=== PATIENT | female | born 1970 | race American Indian/Alaskan Native ===

== ENCOUNTER 2019-06-03 09:15 | Emergency (ER) | payer OTHER ==
[2019-06-03] MEDS ORDERED: NORMODYNE IV ONE ×2 (11:14→13:33)
[2019-06-03] MEDS ORDERED: APRESOLINE IV ONE (11:21)
[2019-06-03 11:42] LABS: BUN/Creatinine Ratio 10; Blood Urea Nitrogen 6 mg/dL (7-17); Calcium 9.6 mg/dL (8.4-10.2); Hemolysis Index 42
--- NOTE | 2019-06-03 13:08 | Emergency Department Report ---
ED General Adult HPI - General Chief complaint: Extremity Problem,Nontraumatic Stated complaint: LEFT HIP/BACK/LEG PAIN Time Seen by Provider: 06/03/19 10:40 Source: patient Mode of arrival: Ambulatory Limitations: No Limitations - History of Present Illness Initial comments: This is a 49-year-old female that complains of chronic left hip pain related to a fall some 6 months ago. He does not complain of back or leg pain to me at this point. However she states that she received shots which I presume were epidural injections for this pain by an orthopedist in [place]. She states that she was furred to pain management as the "shots did not do any good". She came to this area with no primary care physician and that is the main reason why she decided to come to the emergency room today. She is not complaining of any acute pain whatsoever. She does not know what her diagnosis was. She states that nothing specific was found on imaging in [place]. Patient was found to have severely high and apparently asymptomatic blood pressure. Therefore she was brought to the acute area of the emergency department for evaluation. She admitted to noncompliance with her blood pressure medicine for "a week". -: Gradual, month(s) Location: back, left, lower extremity Radiation: non-radiation Quality: aching Consistency: intermittent, now resolved (not complaining of any acute pain now) Improves with: none Worsens with: none Associated Symptoms: denies other symptoms Treatments Prior to Arrival: none - Related Data Previous Rx's Medication Instructions Recorded Last Taken Type Labetalol [Labetalol 100mg TAB] 100 mg PO BID #60 tablet 06/03/19 Unknown Rx Lisinopril/Hydrochlorothiazide 1 each PO QDAY #30 tablet 06/03/19 Unknown Rx [Zestoretic 10-12.5 mg Tablet] Allergies Allergy/AdvReac Type Severity Reaction Status Date / Time No Known Allergies Allergy Verified 06/03/19 11:20 ED Review of Systems ROS: Stated complaint: LEFT HIP/BACK/LEG PAIN Other details as noted in HPI Constitutional: denies: chills, fever Eyes: denies: eye pain, eye discharge, vision change ENT: denies: ear pain, throat pain Respiratory: denies: cough, shortness of breath, wheezing Cardiovascular: denies: chest pain, palpitations Endocrine: no symptoms reported Gastrointestinal: denies: abdominal pain, nausea, diarrhea Genitourinary: denies: urgency, dysuria, discharge Musculoskeletal: as per HPI. denies: joint swelling, arthralgia Skin: denies: rash, lesions Neurological: denies: headache, weakness, paresthesias Psychiatric: denies: anxiety, depression Hematological/Lymphatic: denies: easy bleeding, easy bruising ED Past Medical Hx - Past Medical History Previous Medical History?: Yes Hx Hypertension: Yes - Surgical History Past Surgical History?: No - Social History Smoking Status: Never Smoker Substance Use Type: None - Medications Home Medications: Home Medications Medication Instructions Recorded Confirmed Last Taken Type Labetalol [Labetalol 100mg TAB] 100 mg PO BID #60 tablet 06/03/19 Unknown Rx Lisinopril/Hydrochlorothiazide 1 each PO QDAY #30 tablet 06/03/19 Unknown Rx [Zestoretic 10-12.5 mg Tablet] ED Physical Exam - General Limitations: No Limitations General appearance: alert, in no apparent distress - Head Head exam: Present: atraumatic, normocephalic - Eye Eye exam: Present: normal appearance. Absent: scleral icterus - ENT ENT exam: Present: mucous membranes moist - Neck Neck exam: Present: normal inspection - Respiratory Respiratory exam: Present: normal lung sounds bilaterally. Absent: respiratory distress - Cardiovascular Cardiovascular Exam: Present: regular rate, normal rhythm. Absent: systolic murmur, diastolic murmur, rubs, gallop - GI/Abdominal GI/Abdominal exam: Present: soft, normal bowel sounds. Absent: distended, tenderness, guarding, rebound, rigid - Extremities Exam Extremities exam: Present: normal inspection - Back Exam Back exam: Present: normal inspection - Neurological Exam Neurological exam: Present: alert, oriented X3, CN II-XII intact. Absent: motor sensory deficit - Psychiatric Psychiatric exam: Present: normal affect, normal mood - Skin Skin exam: Present: warm, dry, intact, normal color. Absent: rash ED Course Vital Signs 06/03/19 06/03/19 06/03/19 10:40 11:17 11:19 Temperature 98.2 F Pulse Rate 61 Respiratory 20 Rate Blood Pressure 226/136 [Right] O2 Sat by Pulse Oximetry 06/03/19 06/03/19 06/03/19 11:53 12:00 12:39 Temperature Pulse Rate 63 82 87 Respiratory 20 20 Rate Blood Pressure 210/132 218/133 [Right] O2 Sat by Pulse 99 99 Oximetry 06/03/19 06/03/19 06/03/19 13:23 13:50 14:01 Temperature Pulse Rate 81 78 Respiratory 16 Rate Blood Pressure 196/118 142/81 [Right] O2 Sat by Pulse 99 Oximetry 06/03/19 14:24 Temperature Pulse Rate 77 Respiratory 20 Rate Blood Pressure 168/93 [Right] O2 Sat by Pulse 99 Oximetry - Reevaluation(s) Reevaluation #1: Patient is asymptomatic on reevaluation. Her blood pressure has improved. She is appropriate for outpatient disposition. 06/03/19 14:38 ED Medical Decision Making - Lab Data Result diagrams: 06/03/19 11:02 Laboratory Results - last 24 hr 06/03/19 11:02 Sodium 143 Potassium 3.9 Chloride 104.8 Carbon Dioxide 26 Anion Gap 16 BUN 6 L Creatinine 0.6 L Estimated GFR > 60 BUN/Creatinine Ratio 10 Glucose 98 Calcium 9.6 Critical care attestation.: If time is entered above; I have spent that time in minutes in the direct care of this critically ill patient, excluding procedure time. ED Disposition Clinical Impression: Uncontrolled hypertension, Hip pain, left Disposition: [id number] TO HOME OR SELFCARE Is pt being admited?: No Does the pt Need Aspirin: No Condition: Stable Instructions: Hypertension (ED), Arthralgia (ED), Lumbar Radiculopathy (ED) Additional Instructions: Follow-up with local primary care. Return any acute change or problem. Prescriptions: Labetalol [Labetalol 100mg TAB] 100 mg PO BID #60 tablet Lisinopril/Hydrochlorothiazide [Zestoretic 10-12.5 mg Tablet] 1 each PO QDAY #30 tablet Referrals: SUDARSHAN NOLAN MD [Primary Care Provider] - 24 Hours Time of Disposition: 14:41
[2019-06-03 15:28] VITALS: BP 150/88
== END 2019-06-03 15:30 | disposition home or self-care (01) ==
LOC: ED 09:15
DX: M25.552 Pain in left hip (principal); I10 Essential (primary) hypertension; Z79.899 Other long term (current) drug therapy
CPT/HCPCS: 80048; 96374; 96375; 99283; J0360